=== PATIENT | male | born 1945 ===

== ENCOUNTER 2018-08-27 08:37 | Outpatient (CLI) | payer MEDICARE | END 2018-08-27 08:38 | disposition home or self-care (01) | LOC: C.LAB 08:37 | DX: K40.90 Unilateral inguinal hernia, without obstruction or gangrene, not specified as recurrent (principal) ==

== ENCOUNTER 2018-08-31 07:36 | Outpatient (CLI) | payer MEDICARE | END 2018-08-31 07:37 | disposition home or self-care (01) | LOC: C.CTH 07:36 | DX: K40.90 Unilateral inguinal hernia, without obstruction or gangrene, not specified as recurrent (principal); R10.31 Right lower quadrant pain ==